=== PATIENT | female | born 1985 | race Caucasian/White ===

== ENCOUNTER 2018-01-26 09:09 | Emergency (ER) | payer SELFPAY ==
[2018-01-26] MEDS ORDERED: RINGERS SOLUTION,LACTATED 1,000 ML IV ONE (09:50)
[2018-01-26] MEDS ORDERED: ONDANSETRON 4 MG TAB.RAPDIS PO ONE (09:51)
--- NOTE | 2018-01-26 09:52 | ER Document Report ---
ED Medical Screen (RME) - General Chief Complaint: Near Syncope Stated Complaint: DIZZY, WEAKNESS Time Seen by Provider: 01/26/18 09:42 Notes: RAPID MEDICAL EVALUATION DISCLOSURE I have seen this patient as part of a Rapid Medical Evaluation and, if applicable, placed any initially appropriate orders. The patient will be seen and fully evaluated, including a full history and physical exam, by a provider ( in Main ED or Fast Track) when a room becomes available. 32-year-old female here with complaints of lightheadedness ongoing for the past few days today she had an episode of syncope while at work and was out for approximately 5 minutes but she was able to feel herself about to pass out so she lowered herself to the floor and did not hit her head. She has also had continued nausea and vomiting that has been ongoing several times per week for the last 4 years and she states this is due to her stomach ulcers. She has a history of GI bleed due to stomach ulcers and recently has had a few black stools. EXAM CTAB RRR No abdominal TTP TRAVEL OUTSIDE OF THE U[place] IN LAST 30 DAYS: No - Related Data Allergies/Adverse Reactions: No Known Allergies Allergy (Verified 03/11/15 14:26) Home Medications: pepcid Past Medical History - Past Medical History Cardiac Medical History: Denies: Hx Coronary Artery Disease, Hx Heart Attack, Hx Hypertension Pulmonary Medical History: Reports: Hx Asthma - Exercise induced, Hx Pneumonia - 1996 Denies: Hx Bronchitis, Hx COPD Neurological Medical History: Reports: Hx Migraine. Denies: Hx Cerebrovascular Accident, Hx Seizures Musculoskeltal Medical History: Denies Hx Arthritis Past Surgical History: Denies: Hx Hysterectomy - Immunizations Hx Diphtheria, Pertussis, Tetanus Vaccination: Yes - 09/05/09 Physical Exam - Vital signs Vitals: Temp Pulse Resp BP Pulse Ox 98.4 F 99 18 122/72 100 01/26/18 09:14 01/26/18 09:14 01/26/18 09:14 01/26/18 09:14 01/26/18 09:14 Course - Vital Signs Vital signs: Temp Pulse Resp BP Pulse Ox 98.4 F 99 18 122/72 100 01/26/18 09:14 01/26/18 09:14 01/26/18 09:14 01/26/18 09:14 01/26/18 09:14
[2018-01-26 10:30] LABS: ABSOLUTE LYMPHOCYTES (AUTO) 1.3 10^3/uL (0.5-4.7); ABSOLUTE MONOCYTES (AUTO) 0.5 10^3/uL (0.1-1.4); ABSOLUTE NEUT (AUTO) 4.1 10^3/uL (1.7-8.2); BASOPHILS % (AUTO) 0.6 % (0-2); EOSINOPHILS % (AUTO) 0.5 % (0-6); HEMATOCRIT 46.3 % (36.0-47.0); LYMPHOCYTES % (AUTO) 21.7 % (13-45); MEAN CORPUSCULAR HEMOGLOBIN 28.9 pg (27.0-33.4); MEAN CORPUSCULAR HGB CONC 34.5 g/dL (32.0-36.0); MEAN CORPUSCULAR VOLUME 84 fl (80-97); MONOCYTES % (AUTO) 8.9 % (3-13); PLATELET COUNT 326 10^3/uL (150-450); RED BLOOD COUNT 5.53 10^6/uL (3.72-5.28); RED CELL DISTRIBUTION WIDTH 13.9 % (11.5-14.0); SEGMENTED NEUTROPHILS % (AUTO) 68.3 % (42-78); TOTAL CELLS COUNTED % (AUTO) 100 %; WHITE BLOOD COUNT 6.1 10^3/uL (4.0-10.5)
[2018-01-26 10:39] LABS: APPEARANCE,URINE SLIGHTLY-CLOUDY; BILIRUBIN,URINE NEGATIVE (NEGATIVE); COLOR,URINE YELLOW; GLUCOSE, URINE NEGATIVE (NEGATIVE); KETONES,URINE NEGATIVE (NEGATIVE); LEUKOCYTE ESTERASE,URINE NEGATIVE (NEGATIVE); NITRITE,URINE NEGATIVE (NEGATIVE); PROTEIN,URINE NEGATIVE (NEGATIVE); URINE SPECIFIC GRAVITY 1.024; UROBILINOGEN,URINE NEGATIVE mg/dL (<2.0)
[2018-01-26 10:45] LABS: ALANINE AMINOTRANSFERASE 23 U/L (9-52); ALBUMIN 5.2 g/dL (3.5-5.0); ALKALINE PHOSPHATASE 47 U/L (38-126); ANION GAP 17 (5-19); ASPARTATE AMINO TRANSFERASE 22 U/L (14-36); BILIRUBIN,DIRECT 0.3 mg/dL (0.0-0.4); BILIRUBIN,TOTAL 0.8 mg/dL (0.2-1.3); BLOOD UREA NITROGEN 19 mg/dL (7-20); CALCIUM 10.9 mg/dL (8.4-10.2); CARBON DIOXIDE 23 mmol/L (22-30); CHLORIDE 104 mmol/L (98-107); GLUCOSE 75 mg/dL (75-110); LIPASE 139.3 U/L (23-300); POTASSIUM 4.5 mmol/L (3.6-5.0); TOTAL PROTEIN 8.7 g/dL (6.3-8.2)
--- NOTE | 2018-01-26 10:51 | ER Document Report ---
ED General - General Chief Complaint: Near Syncope Stated Complaint: DIZZY, WEAKNESS Time Seen by Provider: 01/26/18 09:42 Mode of Arrival: Ambulatory Information source: Patient TRAVEL OUTSIDE OF THE [place]S. IN LAST 30 DAYS: No - HPI Notes: 32-year-old female presents to the emergency room for complaints of feeling dizzy, and states she did have a syncopal event where she passed out for a few seconds this morning. States she felt onset sat down. Was witnessed by a coworker, denies any jerking or seizure-like movements. Patient states that she has a history of being lightheaded and dizzy, she is always been close to passing throughout the last several years but has never passed out prior. Last menstrual period was January 05, reports history of a tubal ligation. Reports she has not been eating or drinking that much, works in a strenuous job where she does sweat a lot and tries to stay hydrated but often does not. Patient does admit to smoking marijuana. Patient was concerned about a possible GI bleed due to noticing some bright red blood after having a bowel movement 2 days ago. Coffee-ground emesis or melena. Patient's unsure if she is anemic. Patient states she has a history of gastric ulcers, had an endoscopic study done approximately 3 years, [place], reports she moved to [place] and just came back recently and has not followed up with a csw. Patient also reports she has a history of migraines. Denies any recent trauma or falls. Denies fevers, chills, chest pain,palpitations, shortness of breath, dyspnea, nausea, vomiting, diarrhea, abdominal pain, hematuria,blurred vision, double vision, loss of vision, speech changes, headaches, wheezing, ST, URI, neck pain, weakness, bowel or bladder dysfunction, saddle anesthesia, numbness or tingling in bilateral upper or lower extremities equally, muscle paralysis, weakness in bilateral upper or lower extremities equally or rash. Denies IV drug use. - Related Data Allergies/Adverse Reactions: No Known Allergies Allergy (Verified 01/26/18 10:55) Home Medications: pepcid Past Medical History - General Information source: Patient - Social History Smoking Status: Never Smoker Chew tobacco use (# tins/day): Yes Frequency of alcohol use: None Drug Abuse: Marijuana Family History: Reviewed & Not Pertinent Patient has suicidal ideation: No Patient has homicidal ideation: No - Past Medical History Cardiac Medical History: Denies: Hx Coronary Artery Disease, Hx Heart Attack, Hx Hypertension Pulmonary Medical History: Reports: Hx Asthma - Exercise induced, Hx Pneumonia - 1996 Denies: Hx Bronchitis, Hx COPD Neurological Medical History: Reports: Hx Migraine. Denies: Hx Cerebrovascular Accident, Hx Seizures Renal/ Medical History: Denies: Hx Peritoneal Dialysis Musculoskeltal Medical History: Denies Hx Arthritis Past Surgical History: Reports: Hx Tubal Ligation. Denies: Hx Hysterectomy - Immunizations Hx Diphtheria, Pertussis, Tetanus Vaccination: Yes - 09/05/09 Hx Pneumococcal Vaccination: 09/05/11 Review of Systems - Review of Systems Constitutional: See HPI EENT: No symptoms reported Cardiovascular: No symptoms reported Respiratory: No symptoms reported Gastrointestinal: No symptoms reported Genitourinary: No symptoms reported Female Genitourinary: No symptoms reported Musculoskeletal: No symptoms reported Skin: No symptoms reported Hematologic/Lymphatic: No symptoms reported Neurological/Psychological: See HPI Physical Exam - Vital signs Vitals: Temp Pulse Resp BP Pulse Ox 98.4 F 99 18 122/72 100 01/26/18 09:14 01/26/18 09:14 01/26/18 09:14 01/26/18 09:14 01/26/18 09:14 - Notes Notes: PHYSICAL EXAMINATION: GENERAL: Well-appearing, well-nourished and in no acute distress. HEAD: Atraumatic, normocephalic. EYES: Pupils equal round and reactive to light, extraocular movements intact, conjunctiva are normal. ENT: Nares patent, oropharynx clear without exudates. dry mucous membranes. NECK: Normal range of motion, supple without lymphadenopathy LUNGS: Breath sounds clear to auscultation bilaterally and equal. No wheezes rales or rhonchi. HEART: Regular rate and rhythm without murmurs ABDOMEN: Soft, nontender, nondistended abdomen. No guarding, no rebound. No masses appreciated. Female : deferred Musculoskeletal: Normal range of motion, no pitting or edema. No cyanosis. NEUROLOGICAL: Cranial nerves grossly intact. Normal speech, normal gait. Normal sensory, motor exams PSYCH: Normal mood, normal affect. SKIN: Warm, Dry, normal turgor, no rashes or lesions noted. Course - Re-evaluation Re-evalutation: Healthy 32-year-old female, afebrile, vitals stable no distress presents for evaluation of diabetes and syncopal event. Patient does have a history of being lightheaded and having episodes where she passed out. CBC negative for any anemia or leukocytosis. CBC negative for any renal or hepatic dysfunction, electrolytes normal. Lipase negative. Occult stool negative. CT head unremarkable for any acute findings. Chest x-ray normal. Cardiac enzymes normal. EKG normal sinus rhythm no STEMI. Urinalysis negative. Patient given 2 L of fluid, initial orthostatics showed sitting,102/67,66 laying 98/62, standing 66/47; however suspect that the tachycardia did the orthostatics do not wait 5 minutes between 2 your blood pressures to assess for orthostatics. Another liter of fluids given, orthostatics were repeated. Patient [id number]/ [id number], sitting 89/73, 109/72. Reevaluation patient 90% better. Discussed with patient to rehydrate with Pedialyte and Gatorade, avoid smoking marijuana as this can this vomiting. Will discharge her with prescription for Zofran. Follow-up with primary care provider within [address] or operate heavy machinery having concerns of syncopal events. I have reevaluated this patient multiple times and no significant life threatening changes, no signs of toxicity, sepsis or peritonitis are noted. The patient and I have discussed the diagnosis and risks, and we agree with discharging home and close follow- up. We also discussed returning to the Emergency Department immediately if new or worsening symptoms occur with the understanding that symptoms and presentations can change. At this time will discharge with return precautions and follow-up recommendations. Verbal discharge instructions given a the bedside and opportunity for questions given. We have discussed the symptoms which are most concerning (cp, sob, urinary or bowel incontinence or retention, changing or worsening pain) that necessitate immediate return. Medication warnings reviewed. Patient is in agreement with this plan and has verbalized understanding of return precautions and the need for primary care follow-up in the next 24-72 hours. Patient verbalized understanding of plan of care and agree with plan of care. - Vital Signs Vital signs: Temp Pulse Resp BP Pulse Ox 98.4 F 71 15 108/76 100 01/26/18 17:31 01/26/18 17:09 01/26/18 17:31 01/26/18 17:31 01/26/18 17:31 - Laboratory Result Diagrams: 01/26/18 09:50 01/26/18 09:50 Laboratory results interpreted by me: 01/26/18 01/26/18 09:50 09:50 RBC 5.53 H Hgb 16.0 H Calcium 10.9 H Total Protein 8.7 H Albumin 5.2 H - EKG Interpretation by Me EKG shows normal: Sinus rhythm Rate: Normal Rhythm: NSR - hr 64. non stemi Discharge - Discharge Clinical Impression: Orthostatic hypotension, Nausea & vomiting Clinical Impression: (Ruled Out): Chronic orthostatic hypotension Condition: Good Disposition: HOME, SELF-CARE Instructions: Antinausea Medication ([facility]), Dehydration ([facility]), Intravenous (IV) Fluids ([facility]), Nausea or Vomiting, Nonspecific ([facility]), Orthostatic Hypotension ( [facility]), Vomiting ([facility]) Prescriptions: Ondansetron [Zofran Odt 4 mg Tablet] 1 - 2 tab PO Q4H PRN #15 tab.rapdis PRN Reason: For Nausea/Vomiting Forms: Return to Work Referrals: RIAN BEARD MD [ACTIVE STAFF] - Follow up tomorrow NEHAL PATEL MD [ACTIVE STAFF] - Follow up tomorrow
[2018-01-26] MEDS ORDERED: NORMAL SALINE 1000 ML 1,000 ML IV ONE (11:38)
[2018-01-26] MEDS ORDERED: PANTOPRAZOLE SODIUM 40 MG VIAL IV ONE (11:38)
--- NOTE | 2018-01-26 12:12 | RADIOLOGY REPORT (SQ) ---
EXAM DESCRIPTION: CHEST SINGLE VIEW COMPLETED DATE/TIME: 01/26/2018 11:59 am REASON FOR STUDY: syncopal event COMPARISON: None. EXAM PARAMETERS: NUMBER OF VIEWS: One view. TECHNIQUE: Single frontal radiographic view of the chest acquired. RADIATION DOSE: NA LIMITATIONS: None. FINDINGS: LUNGS AND PLEURA: No opacities, masses or pneumothorax. No pleural effusion. MEDIASTINUM AND HILAR STRUCTURES: No masses. Contour normal. HEART AND VASCULAR STRUCTURES: Heart normal in size. Normal vasculature. BONES: No acute findings. HARDWARE: None in the chest. OTHER: No other significant finding. IMPRESSION: NO ACUTE RADIOGRAPHIC FINDING IN THE CHEST. TECHNICAL DOCUMENTATION: JOB ID: [id number] [employer]- All Rights Reserved Reading location - IP/workstation name: [email or web address]
--- NOTE | 2018-01-26 12:21 | RADIOLOGY REPORT (SQ) ---
EXAM DESCRIPTION: CT HEAD WITHOUT COMPLETED DATE/TIME: 01/26/2018 12:11 pm REASON FOR STUDY: syncopal event COMPARISON: None. TECHNIQUE: Axial images acquired through the brain without intravenous contrast. Images reviewed wi th bone, brain and subdural windows. Additional sagittal and coronal reconstructions were generated. Images stored on PACS. All CT scanners at this facility use dose modulation, iterative reconstruction, and/or weight based d osing when appropriate to reduce radiation dose to as low as reasonably achievable (ALARA). [facility]: Dose Right [facility]: CareDose [facility]: Dose Right [facility]: Teradose 4D [facility]: Smart DATY RADIATION DOSE: CT Rad equipment meets quality standard of care and radiation dose reduction techniq ues were employed. CTDIvol: 53.2 mGy. DLP: 991 mGy-cm. mGy. LIMITATIONS: None. FINDINGS: VENTRICLES: Normal size and contour. CEREBRUM: No masses. No hemorrhage. No midline shift. No evidence for acute infarction. Normal gra y/white matter differentiation. No areas of low density in the white matter. CEREBELLUM: No masses. No hemorrhage. No alteration of density. No evidence for acute infarction. EXTRAAXIAL SPACES: No fluid collections. No masses. ORBITS AND GLOBE: No intra- or extraconal masses. Normal contour of globe without masses. CALVARIUM: No fracture. PARANASAL SINUSES: No fluid or mucosal thickening. SOFT TISSUES: No mass or hematoma. OTHER: No other significant finding. IMPRESSION: NORMAL BRAIN CT WITHOUT CONTRAST. EVIDENCE OF ACUTE STROKE: NO. COMMENT: Quality ID # 436: Final reports with documentation of one or more dose reduction techniques (e.g., Automated exposure control, adjustment of the mA and/or kV according to patient size, use of iterative reconstruction technique) TECHNICAL DOCUMENTATION: JOB ID: [id number] [employer]- All Rights Reserved Reading location - IP/workstation name: [email or web address]
[2018-01-26 12:38] LABS: URINE AMPHETAMINES SCREEN NEGATIVE; URINE BARBITURATES SCREEN NEGATIVE; URINE BENZODIAZEPINES SCREEN NEGATIVE; URINE COCAINE SCREEN NEGATIVE; URINE MARIJUANA (THC) SCREEN UNCONFIRMED POSITIVE; URINE METHADONE SCREEN NEGATIVE; URINE PHENCYCLIDINE SCREEN NEGATIVE
[2018-01-26 12:47] LABS: CREATINE KINASE MB < 0.22 ng/mL (<4.55); TROPONIN I < 0.012 ng/mL
--- NOTE | 2018-01-26 13:43 | EKG REPORT ---
SEVERITY:- NORMAL ECG - SINUS RHYTHM : Confirmed by: Tyler Rivera MD 26-Jan-2018 13:42:34
[2018-01-26] MEDS ORDERED: NORMAL SALINE 1000 ML 1,000 ML IV PRN (14:59)
[2018-01-26 16:25] LABS: CREATINE KINASE MB < 0.22 ng/mL (<4.55); TROPONIN I < 0.012 ng/mL
[2018-01-26 17:36] VITALS: BP 108/76
== END 2018-01-26 17:35 | disposition home or self-care (01) ==
LOC: ER 09:09
DX: I95.1 Orthostatic hypotension (principal); K27.9 Peptic ulcer, site unspecified, unspecified as acute or chronic, without hemorrhage or perforation; J45.909 Unspecified asthma, uncomplicated; R11.2 Nausea with vomiting, unspecified; F12.10 Cannabis abuse, uncomplicated; Z79.899 Other long term (current) drug therapy; Z87.11 Personal history of peptic ulcer disease; Z98.51 Tubal ligation status
CPT/HCPCS: 93005; 99285; 96361; 96374; 36415; 87086; 82553; 82550; 83690; 83735; 84100; 84443; 85025; 82272; 81025; 80053; 81001; 84484; 80307; 71045; 70450; 93010; S0119; S0164; J7030; J7120

== ENCOUNTER 2018-04-17 16:47 | Emergency (ER) | payer MEDICAID ==
[2018-04-17] MEDS ORDERED: DIPHENHYDRAMINE HCL 50 MG/ML VIAL IV ONE (18:15)
[2018-04-17] MEDS ORDERED: METOCLOPRAMIDE HCL INJ/PF 10 MG/2 ML SDV IV ONE (18:15)
[2018-04-17] MEDS ORDERED: NORMAL SALINE 1000 ML 1,000 ML IV ONE (18:15)
[2018-04-17] MEDS ORDERED: KETOROLAC TROMETHAMINE INJ/PF 30 MG/1 ML SDV IV ONE (18:15)
--- NOTE | 2018-04-17 18:18 | ER Document Report ---
ED Medical Screen (RME) - General Chief Complaint: Headache Stated Complaint: SEVERE HEADACHE/DIZZINESS Time Seen by Provider: 04/17/18 18:14 Notes: 32-year-old female presents to the ER with a headache. Patient just recently moved here from [place] she is plagued by frequent headaches and a history of headaches. She usually has cluster migraines. States this 1 began yesterday and got progressively worse it is of a different character than her other headaches. Patient states the pain starts in her neck and radiates forward. She denies any extremity numbness tingling or weakness. States she has a little bit of strange blurred vision and slurred speech. She denies a history of complex migraine headaches. TRAVEL OUTSIDE OF THE U.S. IN LAST 30 DAYS: No - Related Data Allergies/Adverse Reactions: No Known Allergies Allergy (Verified 01/26/18 10:55) Past Medical History - Past Medical History Cardiac Medical History: Denies: Hx Coronary Artery Disease, Hx Heart Attack, Hx Hypertension Pulmonary Medical History: Reports: Hx Asthma - Exercise induced, Hx Pneumonia - 1996 Denies: Hx Bronchitis, Hx COPD Neurological Medical History: Reports: Hx Migraine. Denies: Hx Cerebrovascular Accident, Hx Seizures Renal/ Medical History: Denies: Hx Peritoneal Dialysis Musculoskeltal Medical History: Denies Hx Arthritis Past Surgical History: Reports: Hx Tubal Ligation. Denies: Hx Hysterectomy - Immunizations Hx Diphtheria, Pertussis, Tetanus Vaccination: Yes - 09/05/09 Physical Exam - Vital signs Vitals: Temp Pulse Resp BP Pulse Ox 98.3 F 60 16 110/60 98 04/17/18 16:58 04/17/18 16:58 04/17/18 16:58 04/17/18 16:58 04/17/18 16:58 - Notes Notes: MENTAL_STATUS: speech_clear, oriented_X_3, normal_affect, responds_ appropriately to questions. NEURO: Neg Motor or Sensory Deficits on exam, CN 2-12 intact, DTR 2+ symmetric x 4, No cerbellar signs Course - Re-evaluation Re-evalutation: 04/17/18 18:17 Patient presents with an atypical headache for her. We will scan her head. There is no thunderclap no rapid onset not worst headache of life suspicion for subarachnoid hemorrhage is low Patient is a frequent headache suffer her. She states this character is new. She denies fever chills or neck stiffness. - Vital Signs Vital signs: Temp Pulse Resp BP Pulse Ox 98.3 F 60 16 110/60 98 04/17/18 16:58 04/17/18 16:58 04/17/18 16:58 04/17/18 16:58 04/17/18 16:58
--- NOTE | 2018-04-17 19:12 | RADIOLOGY REPORT (SQ) ---
EXAM DESCRIPTION: CT HEAD WITHOUT COMPLETED DATE/TIME: 04/17/2018 6:50 pm REASON FOR STUDY: headache COMPARISON: 01/26/2018 TECHNIQUE: Axial images acquired through the brain without intravenous contrast. Images reviewed wi th bone, brain and subdural windows. Additional sagittal and coronal reconstructions were generated. Images stored on PACS. All CT scanners at this facility use dose modulation, iterative reconstruction, and/or weight based d osing when appropriate to reduce radiation dose to as low as reasonably achievable (ALARA). [facility]: Dose Right [facility]: CareDose [facility]: Dose Right [facility]: Teradose 4D [facility]: Smart [employer] RADIATION DOSE: CT Rad equipment meets quality standard of care and radiation dose reduction techniq ues were employed. CTDIvol: 53.2 mGy. DLP: 964 mGy-cm. mGy. LIMITATIONS: None. FINDINGS: VENTRICLES: Normal size and contour. CEREBRUM: No masses. No hemorrhage. No midline shift. No evidence for acute infarction. Normal gra y/white matter differentiation. No areas of low density in the white matter. CEREBELLUM: No masses. No hemorrhage. No alteration of density. No evidence for acute infarction. EXTRAAXIAL SPACES: No fluid collections. No masses. ORBITS AND GLOBE: No intra- or extraconal masses. Normal contour of globe without masses. CALVARIUM: No fracture. PARANASAL SINUSES: No fluid or mucosal thickening. SOFT TISSUES: No mass or hematoma. OTHER: No other significant finding. IMPRESSION: NORMAL BRAIN CT WITHOUT CONTRAST. EVIDENCE OF ACUTE STROKE: NO. COMMENT: Quality ID # 436: Final reports with documentation of one or more dose reduction techniques (e.g., Automated exposure control, adjustment of the mA and/or kV according to patient size, use of iterative reconstruction technique) TECHNICAL DOCUMENTATION: JOB ID: [id number] [employer]- All Rights Reserved Reading location - IP/workstation name: [email or web address]
[2018-04-17 19:34] LABS: ABSOLUTE EOSINOPHILS # (AUTO) 0.1 10^3/uL (0.0-0.6); ABSOLUTE LYMPHOCYTES (AUTO) 1.5 10^3/uL (0.5-4.7); ABSOLUTE MONOCYTES (AUTO) 0.5 10^3/uL (0.1-1.4); ABSOLUTE NEUT (AUTO) 4.8 10^3/uL (1.7-8.2); BASOPHILS % (AUTO) 0.4 % (0-2); EOSINOPHILS % (AUTO) 1.8 % (0-6); HEMATOCRIT 39.4 % (36.0-47.0); HEMOGLOBIN 13.4 g/dL (12.0-15.5); LYMPHOCYTES % (AUTO) 21.2 % (13-45); MEAN CORPUSCULAR HEMOGLOBIN 28.9 pg (27.0-33.4); MEAN CORPUSCULAR HGB CONC 34.1 g/dL (32.0-36.0); MEAN CORPUSCULAR VOLUME 85 fl (80-97); MONOCYTES % (AUTO) 7.3 % (3-13); PLATELET COUNT 238 10^3/uL (150-450); RED BLOOD COUNT 4.66 10^6/uL (3.72-5.28); RED CELL DISTRIBUTION WIDTH 14.1 % (11.5-14.0); SEGMENTED NEUTROPHILS % (AUTO) 69.3 % (42-78); TOTAL CELLS COUNTED % (AUTO) 100 %; WHITE BLOOD COUNT 6.9 10^3/uL (4.0-10.5)
--- NOTE | 2018-04-17 19:45 | ER Document Report ---
ED Headache - General Chief Complaint: Headache Stated Complaint: SEVERE HEADACHE/DIZZINESS Time Seen by Provider: 04/17/18 18:14 Notes: 32-year-old female presents to the ER with a headache. Patient just recently moved here from [place] she is plagued by frequent headaches and a history of headaches. She usually has cluster migraines. States this 1 began yesterday and got progressively worse it is of a different character than her other headaches. Patient states the pain starts in her neck and radiates forward. She denies any extremity numbness tingling or weakness. States she has a little bit of strange blurred vision and slurred speech. She denies a history of complex migraine headaches. TRAVEL OUTSIDE OF THE [place] IN LAST 30 DAYS: No - Related Data Allergies/Adverse Reactions: No Known Allergies Allergy (Verified 01/26/18 10:55) Past Medical History - Social History Smoking Status: Never Smoker Chew tobacco use (# tins/day): No Drug Abuse: None Family History: Reviewed & Not Pertinent Patient has suicidal ideation: No Patient has homicidal ideation: No - Past Medical History Cardiac Medical History: Denies: Hx Coronary Artery Disease, Hx Heart Attack, Hx Hypertension Pulmonary Medical History: Reports: Hx Asthma - Exercise induced, Hx Pneumonia - 1996 Denies: Hx Bronchitis, Hx COPD Neurological Medical History: Reports: Hx Migraine. Denies: Hx Cerebrovascular Accident, Hx Seizures Renal/ Medical History: Denies: Hx Peritoneal Dialysis Musculoskeletal Medical History: Denies Hx Arthritis Past Surgical History: Reports: Hx Tubal Ligation. Denies: Hx Hysterectomy - Immunizations Hx Diphtheria, Pertussis, Tetanus Vaccination: Yes - 09/05/09 Hx Pneumococcal Vaccination: 09/05/11 Review of Systems - Review of Systems Constitutional: denies: Chills, Diaphoresis, Fever EENT: Blurred vision Gastrointestinal: Nausea, Vomiting. denies: Diarrhea, Constipation Skin: denies: Rash Neurological/Psychological: Headaches, Speech impairment -: Yes All other systems reviewed and negative Physical Exam - Vital signs Vitals: Temp Pulse Resp BP Pulse Ox 98.3 F 60 16 110/60 98 04/17/18 16:58 04/17/18 16:58 04/17/18 16:58 04/17/18 16:58 04/17/18 16:58 - Notes Notes: GENERAL_APPEARANCE: well_nourished, alert, cooperative, appears uncomfortable VITALS: reviewed, see vital signs table. HEAD: no_swelling\tenderness on the head. EYES: PERRL, EOMI, conjunctiva_clear. NOSE: no_nasal_discharge. MOUTH: (-)decreased moisture. THROAT: no_tonsilar_inflammation, no_airway_obstruction. no_lymphadenopathy NECK: supple, no_neck_tenderness, (-)thyromegaly. BACK: no_back_tenderness. CHEST_WALL: no_chest_tenderness. LUNGS: no_wheezing, no_rales, no_rhonchi, (-)accessory muscle use, good air exchange bilateral. HEART: normal_rate, normal_rhythm, normal_S1, normal_S2, (-)S3, (-)S4, no_ murmur, no_rub. ABDOMEN: normal_BS, soft, no_abd_tenderness, (-)guarding, (-)rebound, no_ organomegaly, no_abd_masses. EXTREMITIES: strength 5/5 in all_extremities, good pulses in all_extremities, no_swelling\tenderness in the extremities, no_edema. SKIN: warm, dry, good_color, no_rash. MENTAL_STATUS: speech_clear, oriented_X_3, normal_affect, responds_ appropriately to questions. NEURO: Neg Motor or Sensory Deficits on exam, CN 2-12 intact, DTR 2+ symmetric x 4, No cerbellar signs Course - Re-evaluation Re-evalutation: 04/17/18 19:43 Patient is with likely complex migraine. She is a very long headache history. The blurred vision and slurred speech has resolved after IV fluids and medications. CT scan of the brain is normal again there is no thunderclap no rapid onset certainly not the worst headache of her life suspicion for subarachnoid hemorrhage is low. The patient will be discharged home we will have the patient follow back up with her doctor or neurologist. She recently moved from out of the area and will need to get established. - Vital Signs Vital signs: Temp Pulse Resp BP Pulse Ox 98.3 F 60 18 110/60 98 04/17/18 16:58 04/17/18 16:58 04/17/18 18:17 04/17/18 16:58 04/17/18 16:58 - Laboratory Result Diagrams: 04/17/18 19:05 04/17/18 19:05 Laboratory results interpreted by me: 04/17/18 19:05 RDW 14.1 H Discharge - Discharge Clinical Impression: Headache Qualifiers: Headache type: unspecified Headache chronicity pattern: acute headache Intractability: not intractable Qualified Code(s): R51 - Headache Condition: Good Disposition: HOME, SELF-CARE Instructions: Headache ([facility]) Prescriptions: Metoclopramide HCl [Reglan 10 mg Tablet] 1 - 2 tab PO ASDIR PRN #25 tablet PRN Reason:
[2018-04-17 19:54] LABS: ANION GAP 12 (5-19); BLOOD UREA NITROGEN 18 mg/dL (7-20); CALCIUM 9.4 mg/dL (8.4-10.2); CARBON DIOXIDE 25 mmol/L (22-30); CHLORIDE 104 mmol/L (98-107); GLUCOSE 88 mg/dL (75-110); POTASSIUM 4.6 mmol/L (3.6-5.0); SODIUM 140.5 mmol/L (137-145)
[2018-04-17 21:01] VITALS: BP 112/70
[2018-04-17 21:30] LABS: APPEARANCE,URINE CLOUDY; BILIRUBIN,URINE NEGATIVE (NEGATIVE); CALCIUM OXALATE CRYSTALS,URINE TOO NUMEROUS TO CNT /HPF; COLOR,URINE AMBER; GLUCOSE, URINE NEGATIVE (NEGATIVE); KETONES,URINE NEGATIVE (NEGATIVE); LEUKOCYTE ESTERASE,URINE TRACE (NEGATIVE); NITRITE,URINE NEGATIVE (NEGATIVE); PROTEIN,URINE NEGATIVE (NEGATIVE); UROBILINOGEN,URINE NEGATIVE mg/dL (<2.0)
== END 2018-04-17 21:01 | disposition home or self-care (01) ==
LOC: ER 16:47
DX: R51 Headache (principal); M54.2 Cervicalgia; H53.8 Other visual disturbances; R47.81 Slurred speech; R11.2 Nausea with vomiting, unspecified; J45.909 Unspecified asthma, uncomplicated; Z86.69 Personal history of other diseases of the nervous system and sense organs
CPT/HCPCS: 99284; 96374; 96375; 36415; 85025; 81025; 80048; 81001; 70450; J1200; J1885; J2765; J7030